=== PATIENT | male | born 1965 | race Caucasian/White ===

== ENCOUNTER 2023-11-01 23:12 | Emergency (ER) | payer OTHER ==
[~2023-11-01] VITALS: Ht 172.7 cm; Wt 94.3 kg
[2023-11-01] MEDS ORDERED: ONDANSETRON HCL/PF 4 MG/2 ML VIAL IVP ONE (23:30)
[2023-11-01] MEDS ORDERED: KETOROLAC TROMETHAMINE 15 MG/ML VIAL IV ONE (23:30)
[2023-11-01] MEDS ORDERED: IV NS 0.9% 1,000 ML BAG IV ONE (23:30)
[2023-11-01] MEDS ORDERED: ONDANSETRON HCL/PF 4 MG/2 ML VIAL ONE (23:40)
[2023-11-01] MEDS ORDERED: KETOROLAC TROMETHAMINE INJ 30 MG/ML VIAL ONE (23:40)
[2023-11-01 23:54] LABS: BASOPHILS % (AUTO) 0.3 % (0.0-2.0); EOSINOPHILS # (AUTO) 0.1 K/uL (0.0-0.7); EOSINOPHILS % (AUTO) 1.2 % (0.0-6.0); HEMATOCRIT 43 % (39-51); HEMOGLOBIN 14.7 g/dL (13.5-17.5); LYMPHOCYTES # (AUTO) 2.5 K/uL (0.8-4.8); LYMPHOCYTES % (AUTO) 30.6 % (20.0-44.0); MEAN CORPUSCULAR HEMOGLOBIN 30 PG (26.0-33.0); MEAN CORPUSCULAR HGB CONC 35 g/dl (31.0-36.0); MEAN CORPUSCULAR VOLUME 88 fL (80-96); MONOCYTES # (AUTO) 0.7 K/uL (0.1-1.30); MONOCYTES % (AUTO) 8.3 % (2.0-12.0); NEUTROPHILS # (AUTO) 4.8 K/uL (1.8-8.9); NEUTROPHILS % (AUTO) 59.6 % (43.0-81.0); PLATELET COUNT (AUTO) 228 K/uL (150-450); RED BLOOD CELL COUNT(AUTO) 4.85 MIL/uL (4.5-6.0); RED CELL DISTRIBUTION WIDTH 13.9 % (11.5-15.0); WHITE BLOOD COUNT (AUTO) 8.1 K/uL (4.3-11.0)
[2023-11-02 00:03] LABS: APPEARANCE,URINE CLEAR (CLEAR); BILIRUBIN,URINE NEGATIVE (NEGATIVE); BLOOD, URINE NEGATIVE Ery/uL (NEGATIVE); COLOR,URINE YELLOW (YELLOW); KETONES,URINE NEGATIVE (NEGATIVE); LEUKOCYTE ESTERASE ,URINE NEGATIVE (NEGATIVE); NITRITE, URINE NEGATIVE (NEGATIVE); PROTEIN,URINE NEGATIVE (NEGATIVE); UGLUCOSE TRACE mg/dL (NEGATIVE)
[2023-11-02 00:08] LABS: ALBUMIN 3.7 g/dL (3.4-5.0); BILIRUBIN,DIRECT 0.1 mg/dL (0.0-0.2); BILIRUBIN,TOTAL 0.3 mg/dL (0.2-1.0); CALCIUM, SERUM 8.9 mg/dL (8.5-10.1); POTASSIUM 3.9 mmol/L (3.5-5.1); TOTAL PROTEIN, SERUM 7.2 g/dL (6.4-8.2)
[2023-11-02 00:10] LABS: INR 1.03 (0.91-1.10); PROTHROMBIN TIME 10.9 SECS (9.2-11.1)
[2023-11-02 01:29] VITALS: BP 139/80; TEMP 98.1; O2SAT 98
== END 2023-11-02 01:30 | disposition home or self-care (01) ==
LOC: ER 23:24
DX: N20.0 Calculus of kidney (principal); M54.50 Low back pain, unspecified
CPT/HCPCS: 99285; 74176; 96374; 96361; 96375; 85025; 80048; 83690; 80076; 81003; 36415; 85730; J1885; J2405; J7030

== ENCOUNTER 2025-04-20 23:56 | Emergency (ER) | payer OTHER ==
[~2025-04-20] VITALS: Ht 170.2 cm; Wt 90.7 kg
[2025-04-21 00:05] VITALS: BP 124/82; TEMP 98.5; O2SAT 98
[2025-04-21] MEDS ORDERED: AMOX-430 PO ×2 (00:18→18:41)
[2025-04-21] MEDS ORDERED: GUAI-425 PO ×2 (00:18→18:41)
[2025-04-21] MEDS ORDERED: AMOX/CLAVULANATE 875 MG TABLET ONE (00:25)
[2025-04-21] MEDS: AMOX/CLAVULANATE 875 MG TABLET PO ONE (00:31)
== END 2025-04-21 00:31 | disposition home or self-care (01) ==
LOC: ER 04-21
DX: J32.9 Chronic sinusitis, unspecified (principal); E11.9 Type 2 diabetes mellitus without complications

== ENCOUNTER 2025-06-14 20:16 | Inpatient (IN) | payer OTHER ==
[~2025-06-14] VITALS: Ht 172.7 cm; Wt 104.3 kg
[~2025-06-14 20:16] MED LIST: AMOX-430 PO; GUAI-425 PO
[2025-06-14] MEDS ORDERED: ONDANSETRON HCL/PF 4 MG/2 ML VIAL ONE (20:51)
[2025-06-14 20:59] LABS: APPEARANCE,URINE SLIGHTLY CLOUDY (CLEAR); BLOOD, URINE 3+ Ery/uL (NEGATIVE); LEUKOCYTE ESTERASE ,URINE 1+ (NEGATIVE); NITRITE, URINE NEGATIVE (NEGATIVE); UGLUCOSE 3+ mg/dL (NEGATIVE)
[2025-06-14] MEDS: IV NS 0.9% 1,000 ML BAG IV ONE ×2 (21:02→22:19)
[2025-06-14] MEDS: ONDANSETRON HCL/PF 4 MG/2 ML VIAL IVP ONE (21:02)
[2025-06-14 21:15] LABS: PLATELET COUNT (AUTO) 180 K/uL (150-450); RED BLOOD CELL COUNT(AUTO) 5.24 MIL/uL (4.5-6.0); RED CELL DISTRIBUTION WIDTH 13.9 % (11.5-15.0); WHITE BLOOD COUNT (AUTO) 15.1 K/uL (4.3-11.0)
[2025-06-14 21:29] LABS: ADD URINE CULTURE YES; SQUAMOUS EPITHELIAL CELL,UR 0-2 /HPF (None Seen)
[2025-06-14 21:38] LABS: CALCIUM, SERUM 8.9 mg/dL (8.5-10.1); CREATININE 1.1 mg/dL (0.6-1.3); SODIUM SERUM 139 mmol/L (136-145); UREA NITROGEN, BLOOD 18 mg/dL (7-18)
[2025-06-14 21:41] LABS: ASPARTATE AMINOTRANSFERASE 12 U/L (15-37); TOTAL PROTEIN, SERUM 7.2 g/dL (6.4-8.2)
[2025-06-14 21:46] LABS: LACTIC ACID 2.4 mmol/L (0.4-2.0)
[2025-06-14] MEDS ORDERED: CEFTRIAXONE 1GM BAG (ER ONLY) 50 ML IV ONE (21:52)
[2025-06-14] MEDS: CEFTRIAXONE 1 G in IV D5W 50 ML IV ONE (22:19)
[2025-06-14] MEDS ORDERED: ACETAMINOPHEN ES 500 MG TABLET ONE (23:20)
[2025-06-14] MEDS: ACETAMINOPHEN 325 MG TABLET PO ONE (23:25)
[2025-06-14] MEDS ORDERED: MAGNESIUM HYDROXIDE 30 ML UDC PO PRN (23:30)
[2025-06-14] MEDS ORDERED: HYDROCODONE/APAP 5/325MG TABLET PO PRN (23:30)
[2025-06-14] MEDS ORDERED: DEXTROSE 50%-WATER 50 ML DISP.SYRIN IV PRN (23:30)
[2025-06-14] MEDS ORDERED: MAG HYDROX/AL HYDROX/SIMETH 30 ML UDC PO PRN (23:30)
[2025-06-14] MEDS ORDERED: Z GUARD REMEDY 4 OZ OINT TP PRN (23:30)
[2025-06-14] MEDS ORDERED: ONDANSETRON HCL/PF 4 MG/2 ML VIAL IVP PRN (23:30)
[2025-06-15 03:45] VITALS: BP 112/77; TEMP 97.5; O2SAT 98
[2025-06-15 04:00] VITALS: BP 112/77; TEMP 97.5; O2SAT 98
[2025-06-15] MEDS: IV NS 0.9% 1,000 ML IV PRN (04:24)
[2025-06-15] MEDS ORDERED: ASPI-1420 PO (06:32)
[2025-06-15] MEDS ORDERED: LISI10TA29 PO (06:32)
[2025-06-15] MEDS ORDERED: ROSU20TA2 PO (06:32)
[2025-06-15] MEDS ORDERED: CARV12.52 PO (06:32)
[2025-06-15] MEDS ORDERED: CLOP75TA15 PO (06:32)
[2025-06-15] MEDS ORDERED: EMPA25TA PO (06:32)
[2025-06-15] MEDS ORDERED: METF750T46 PO (06:32)
[2025-06-15] MEDS: BLOOD SUGAR DIAGNOSTIC 1 EACH STRIP IN SCH (06:33)
[2025-06-15] MEDS: INSULIN REGULAR, HUMAN 100 UNIT/ML 3 ML VIAL SQ PRN (06:33)
[2025-06-15 07:32] LABS: CALCIUM, SERUM 8.2 mg/dL (8.5-10.1); CREATININE 0.8 mg/dL (0.6-1.3); PHOSPHORUS 2.4 mg/dL (2.5-4.9); SODIUM SERUM 141.0 mmol/L (136-145); UREA NITROGEN, BLOOD 14.0 mg/dL (7-18)
[2025-06-15 07:38] LABS: PLATELET COUNT (AUTO) 165 K/uL (150-450); RED BLOOD CELL COUNT(AUTO) 4.76 MIL/uL (4.5-6.0); RED CELL DISTRIBUTION WIDTH 14.2 % (11.5-15.0); WHITE BLOOD COUNT (AUTO) 16.0 K/uL (4.3-11.0)
[2025-06-15 07:59] LABS: LDL 64.0 mg/dL (0-99)
[2025-06-15 08:00] VITALS: BP 111/71; TEMP 99.3; O2SAT 96
[2025-06-15] MEDS: ASPIRIN 81 MG TAB.CHEW PO SCH (08:22)
[2025-06-15] MEDS: CLOPIDOGREL BISULFATE 75 MG TABLET PO SCH (08:22)
[2025-06-15] MEDS: METOCLOPRAMIDE HCL 10 MG/2 ML VIAL IV ONE (11:47)
[2025-06-15 16:00] VITALS: BP 96/68; TEMP 98.8; O2SAT 96
[2025-06-15] MEDS: ACETAMINOPHEN 325 MG TABLET PO PRN (16:57)
[2025-06-15] MEDS: K PHOS NEUTRAL 250 MG TABLET PO ONE (16:57)
[2025-06-15 20:00] VITALS: BP 105/71; TEMP 98.1; O2SAT 94
[2025-06-15] MEDS: CEFTRIAXONE 1 G in IV D5W 50 ML IV SCH (20:38)
[2025-06-15] MEDS: ATORVASTATIN 40 MG TABLET PO SCH (21:04)
[2025-06-16] MEDS: TEMAZEPAM 15 MG CAPSULE PO PRN (00:42)
[2025-06-16 06:14] LABS: PLATELET COUNT (AUTO) 160 K/uL (150-450); RED BLOOD CELL COUNT(AUTO) 4.48 MIL/uL (4.5-6.0); RED CELL DISTRIBUTION WIDTH 14.1 % (11.5-15.0); WHITE BLOOD COUNT (AUTO) 10.4 K/uL (4.3-11.0)
[2025-06-16 06:28] LABS: CALCIUM, SERUM 8.5 mg/dL (8.5-10.1); CREATININE 0.8 mg/dL (0.6-1.3); PHOSPHORUS 2.7 mg/dL (2.5-4.9); SODIUM SERUM 142.0 mmol/L (136-145); UREA NITROGEN, BLOOD 14.0 mg/dL (7-18)
[2025-06-16 08:00] VITALS: BP 123/82; TEMP 99.6; O2SAT 94
[2025-06-16] MEDS: EMPAGLIFLOZIN 25 MG TABLET PO SCH (08:29)
[2025-06-16] MEDS: ASPIRIN EC 81 MG TABLET.DR PO SCH (08:29)
[2025-06-16] MEDS ORDERED: CLOPIDOGREL BISULFATE 75 MG TABLET PO SCH (09:00)
[2025-06-16 12:14] VITALS: TEMP 98.5
[2025-06-16] MEDS ORDERED: CEPH-570 PO (12:37)
== END 2025-06-16 13:18 | disposition home or self-care (01) | DRG 720 ==
LOC: ER 20:18 → TELE 06-15 03:26 → MED 06-15 03:49
PROVIDERS: ADMIT Nurse Practitioner Acute Care; ATTEND Nurse Practitioner Family
DX: A41.9 Sepsis, unspecified organism (principal); E87.20 Acidosis, unspecified; R65.20 Severe sepsis without septic shock; N39.0 Urinary tract infection, site not specified; E11.9 Type 2 diabetes mellitus without complications; E66.9 Obesity, unspecified; B96.89 Other specified bacterial agents as the cause of diseases classified elsewhere; I25.10 Atherosclerotic heart disease of native coronary artery without angina pectoris; Z87.891 Personal history of nicotine dependence; Z95.5 Presence of coronary angioplasty implant and graft; Z79.82 Long term (current) use of aspirin; Z79.84 Long term (current) use of oral hypoglycemic drugs; Z20.822 Contact with and (suspected) exposure to COVID-19; Z68.30 Body mass index [BMI] 30.0-30.9, adult
CPT/HCPCS: 36415; 76870-TC; 80048-TC; 80061-TC; 80076-TC; 81001; 82962-TC; 83605-TC; 83735-TC; 84100-TC; 84443-TC; 84484-TC; 85025-TC; 87040-TC; 87086-TC; 87186-TC; A4223; G0378; J0696; J1200; J1815; J2405; J2765; J7030; J7040; J7060